=== PATIENT | female | born 2000 | race Asian ===

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

== ENCOUNTER 2021-02-25 13:57 | Outpatient (RCR) | payer OTHER, SELFPAY ==
[2018-09-16 01:18] VITALS: BMI 20.5
== END 2021-04-20 23:59 ==
LOC: IMMUN 13:57
PROVIDERS: PCP Pediatrics; Visit Provider Family Medicine
DX: Z23 Encounter for immunization (principal)
CPT/HCPCS: 0001A; 0002A; 91300